=== PATIENT | male | born 1985 | race African-American/Black ===

== ENCOUNTER 2017-01-04 20:55 | Emergency (ER) | payer MEDICAID ==
[~2017-01-04] VITALS: Ht 170.2 cm; Wt 63.5 kg
[2017-01-04] MEDS ORDERED: NKM (21:24)
[2017-01-04 21:29] VITALS: BP 116/85
[2017-01-04] MEDS ORDERED: HYDROCORTISONE-30 GM TOPIC (21:46)
[2017-01-04] MEDS ORDERED: TYLENOL EXTRA500 MG ORAL (21:46)
[2017-01-04] MEDS ORDERED: KEFLEX500 MG ORAL (21:46)
[2017-01-04 22:09] VITALS: BP 116/85
--- NOTE | 2017-01-07 14:23 | Emergency Room Report ---
History of Present Illness General Chief Complaint: Pain Source: Patient Present Illness HPI 31-year-old male presents ED for evaluation. Patient states he has a rash to his left shoulder. Patient is homeless and is a poor historian. Does not know how long it has been there. Denies any pain. States it is not itchy. Denies rash anywhere else. No other aggravating or relieving factors. Denies any other associated symptoms Allergies: Coded Allergies: No Known Allergies (Unverified , 10/09/15) Patient History Past Medical History: asthma Past Surgical History: none Pertinent Family History: none Social History: Denies: alcohol use, drug use, smoking Immunizations: UTD Reviewed Nursing Documentation: PMH: Agreed, PSxH: Agreed Nursing Documentation-PMH Past Medical History: No Stated History Hx Asthma: Yes Review of Systems All Other Systems: negative except mentioned in HPI Physical Exam Vital Signs Date Time Temp Pulse Resp B/P Pulse Ox O2 Delivery O2 Flow Rate FiO2 01/04/17 21:19 98.2 86 16 116/85 100 Room Air Sp02 EP Interpretation: reviewed, normal General Appearance: no apparent distress, alert, GCS 15, non-toxic Head: normocephalic Eyes: bilateral eye PERRL, bilateral eye normal inspection ENT: normal ENT inspection Neck: normal inspection Respiratory: normal inspection Cardiovascular #1: normal inspection Gastrointestinal: normal inspection Rectal: deferred Genitourinary: no CVA tenderness Musculoskeletal: normal inspection Neurologic: alert, oriented x3, responsive, motor strength/tone normal, sensory intact, speech normal Psychiatric: normal inspection Skin: rash - ezcematous rash to L shoulder Lymphatic: normal inspection Medical Decision Making Diagnostic Impression: Primary Impression: Rash and nonspecific skin eruption ER Course Hospital Course 31-year-old male presents to ED with rash to L shoulder Differential diagnoses include: Cellulitis, dermatitis, insect bite, abscess Clinical course Patient placed on stretcher. After initial history, physical exam reveals a male in no acute distress. On exam there is approximately a 3 x 4 cm eczematous rash noted to the left upper shoulder. Healing. Nonindurated. Nonerythematous. No discharge. Diagnosis - rash stable and discharged to home with prescription for hydrocortisone cream, keflex. Instructed to followup with PMD. Instructed return to ED if symptoms recur or worsen Last Vital Signs Date Time Temp Pulse Resp B/P Pulse Ox O2 Delivery O2 Flow Rate FiO2 01/04/17 22:09 98.2 16 116/85 100 Room Air 01/04/17 21:19 86 Status: improved Disposition: HOME, SELF-CARE Condition: Stable Scripts Acetaminophen* (TYLENOL EXTRA STRENGTH*) 500 Mg Tablet 500 MG ORAL Q8H Y for Prn Headache/Temp > 101, #30 TAB 0 Refills Prov: CAMILLE WALSH M.D. 01/04/17 Cephalexin* (KEFLEX*) 500 Mg Capsule 500 MG ORAL Q6H, #28 CAP 0 Refills Prov: CAMILLE WALSH M.D. 01/04/17 Hydrocortisone/Aloe Vera 1%* (HYDROCORTISONE-ALOE 1% CREAM*) Y Cr 1 APPLIC TOPIC Q6H Y for Itching, #30 GM Prov: CAMILLE WALSH M.D. 01/04/17 Referrals: [facility],REFERR[facility] (PCP) Patient Instructions: Rash, [id number] CAMILLE WALSH M.D. Jan 07, 2017 14:23
== END 2017-01-04 22:09 | disposition home or self-care (01) ==
LOC: EMR 21:38
DX: R21 Rash and other nonspecific skin eruption (principal); Z59.0 Homelessness; J45.909 Unspecified asthma, uncomplicated
CPT/HCPCS: 99282